=== PATIENT | female | born 2005 | race Caucasian/White ===

== ENCOUNTER 2023-05-09 22:58 | Emergency (ER) | payer OTHER, SELFPAY ==
[2023-05-09 23:02] VITALS: BP 152/85; PULSE 119; RESP 20; O2SAT 100
--- NOTE | 2023-05-09 23:09 | PC.NURSE ---
Pt dropped off by 2 male individuals in a car who did not stay. Pt arrives to triage desk and starts talking without making sense. When asked why she is here, states she is crazy. Appears to be possibly trying to use sign language. States she is having pains and asking for something to be taken out of her butt. Unable to state what is in there. Pt is able to state her , but reports she drove here herself. When asked if she has been using any drugs/alcohol, states that she has only been using the sativa and the believa . Removes shoes in triage after refusing to allow staff to take temp, stating that she was removing them for us to take VS. Also states she has Doritos feet .
[2023-05-09 23:32] LABS: Basophils Absolute Auto 0.1 K/mm3 (0.0-0.1); Basophils Percent Auto 1.2 % (0.2-1.2); Eosinophils Absolute Auto 0.3 K/mm3 (0-0.3); Eosinophils Percent Auto 3.1 % (0-4.4); Hemoglobin 12.1 g/dL (12.0-15.0); Immature Granulocyte Absolute 0.04 K/mm3 (0.00-0.031); Immature Granulocyte Percent A 0.4 % (0-0.5); Lymphocytes Absolute Auto 3.89 K/mm3 (0.9-3.2); Lymphocytes Percent Auto 37.6 % (18.3-44.2); Mean Corpuscular HGB Conc 32.7 g/dl (32-36); Mean Corpuscular Hemoglobin 27.6 pg (26-34); Mean Corpuscular Volume 84.5 fl (80-100); Mean Platelet Volume 10.1 fl (7.4-10.4); Monocytes Absolute Auto 0.8 K/mm3 (0.1-0.6); Monocytes Percent Auto 7.5 % (2.6-8.5); Neutrophils Absolute Auto 5.2 K/mm3 (1.3-6.7); Neutrophils Percent Auto 50.2 % (45.5-73.1); Platelet Count Result 433 k/mm3 (150-375); Red Blood Count 4.38 M/mm3 (4.2-5.4); Red Cell Distribution Width 13.8 % (11.5-14.5); White Blood Count 10.4 K/mm3 (4.5-10.0)
--- NOTE | 2023-05-09 23:53 | PC.NURSE ---
this rn was attempting to check patient in and assess patient needs. pt started to state, take my bra off this is uncomfortable . this rn assisted patient with bra per pt request. this rn attempted x2 to assess patient and why she was brought to the ed. pt stated, because I am crazy, one chicken flew off the nest then I will fly . this rn stated she was unsure what that meant. This RN asked pt if she had thoughts of HI or SI. Pt declined SI/ HI at this time. pt started to put on bra and started stating she wanted to look good and feel comfortable. this rn had pt put bra back on. pt unable to answer other questions this rn attempted to ask. pt continued to have loose associations.
[2023-05-09 23:58] LABS: Acetaminophen < 10 ug/mL (10-30); Ethanol < 10 mg/dL (<10); Salicylate < 1.0 mg/dL (2-20)
[2023-05-09 23:59] LABS: Alanine Aminotransferase 19 U/L (6-35); Albumin Level 4.7 g/dL (3.7-5.6); Alkaline Phosphatase 80 U/L (45-116); Anion Gap 8 mmol/L (8-16); Aspartate Amino Transferase 31 U/L (14-36); Bilirubin,Total 0.5 mg/dL (0.2-1.3); Blood Urea Nitrogen 13 mg/dL (8-21); Calcium 9.9 mg/dL (8.9-10.7); Carbon Dioxide 28 mmol/L (22-30); Chloride 105 mmol/L (98-107); Estimated CRCL calculation 108 ml/min; Estimated Glomerular Filt Rate > 60; Glucose 109 mg/dL (65-110); Potassium 3.6 mmol/L (3.4-5.0); Sodium 141 mmol/L (134-143)
--- NOTE | 2023-05-10 00:20 | PC.NURSE ---
this rn attempted to get urine from patient. this rn asked pt to provide a urine sample. pt stated she was on her period. pt placed bloody napkin in urine specimen container. this rn educated pt, that urine sample was needed. pt stated she could only go if there are fluids in her body. this rn stated she could give patient water if she could provide a urine sample. pt then stated she could provide a urine sample. this rn provided pt with a new specimen cup. pt then placed cleaning towelette inside specimen cup. this rn educated patient again on providing a urine sample.
[2023-05-10 00:57] LABS: Appearance Urine Turbid (Clear); Bacteria Urine 4+ /hpf; Bilirubin Urine 2+ (Negative); Blood Urine 3+ (Negative); Color Urine Orange (Yellow); Glucose Urine UA Negative (Negative); Ketones Urine Trace mg/dL (Negative); Leukocyte Esterase Ur 2+ LEU/UL (Negative); Mucus Urine Present /lpf; Need Manual Microscopic Reviewed; Nitrate Urine Negative (Negative); Non Pathogenic Casts 0-2; Protein Urine 2+ mg/dL (Negative); RBC Urine >100 /hpf (0-2); Squamous Epithelial Cell Urine Many /hpf (Few); WBC Urine 51-100 /hpf (0-3)
[2023-05-10 00:58] LABS: Specific Grav Ur 1.031 (1.001-1.035)
[2023-05-10 00:59] LABS: Add Urine Microscopic? YES
--- NOTE | 2023-05-10 01:29 | PC.NURSE ---
this rn explained to pt that more urine was needed due to pt not providing enough. pt stated, I know it .
--- NOTE | 2023-05-10 01:40 | PC.NURSE ---
this rn collected a urine sample at this time from patient.
[2023-05-10 01:50] LABS: Influenza A QL RT-PCR Negative (Negative); Influenza B QL RT-PCR Negative (Negative); RSV RNA, RT-PCR Negative (Negative); SARS-CoV-2 RNA PCR Negative (Negative)
[2023-05-10] MEDS: CEPHALEXIN 500 MG CAPSULE PO (01:58)
--- NOTE | 2023-05-10 02:06 | PC.NURSE ---
this rn went to assess patient. pt was laying on the ground in a puddle of her urine. pt had wiped urine on the alicea around the call light. Pt also stated she had urinated in the bed. pt removed pillow case and placed pillow case in the urine.
--- NOTE | 2023-05-10 02:20 | ED.GENADULT ---
HPI - General Adult General Chief complaint: Psychiatric Symptoms <Benedicto Lange MD - Last Filed: 05/10/23 04:29> Stated complaint: I'm crazy Not answering all questions <Benedicto Lange MD - Last Filed: 05/10/23 04:29> Time Seen by Provider: 05/09/23 23:16 <Benedicto Lange MD - Last Filed: 05/10/23 04:29> History of Present Illness HPI narrative: This is a 17-year-old female with schizophrenia presenting for medical clearance. She was sent from [place] to be medically cleared before admission. Patient is having bizarre behavior. I speak to her she makes strange nonsensical comments like I am ready to pre meditate into the brayden. She denies any SI or HI. She denies use of drugs or alcohol. <Benedicto Lange MD - Last Filed: 05/10/23 04:29> Related Data Allergies/adverse reactions: Allergies Allergy/AdvReac Type Severity Reaction Status Date / Time Unable to Assess Allergy Verified 05/09/23 23:01 <Benedicto Lange MD - Last Filed: 05/10/23 04:29> [facility], [facility] Social History Social History: Social History Substance use type: unknown <Benedicto Lange MD - Last Filed: 05/10/23 04:29> Exam Narrative: APPEARANCE: No apparent distress. Head: atraumatic. EYES: EOMI, NOSE: Atraumatic NECK: Trachea midline RESPIRATORY: No increased rate of breathing CTAB CARDIOVASCULAR: RRR, ABDOMINAL: Soft nontender no guarding rebound no CVA tenderness MUSCULOSKELETAl: No obvious deformities NEURO: Alert. Moving 4/4 extremities SKIN:: Warm, dry. Normal color PSYCHIATRIC: Normal affect <Benedicto Lange MD - Last Filed: 05/10/23 04:29> Course Course Emergency Course: (05/09/2023, Esvin PEREZ) 07:00 - This patient was signed out to me by previous ED physician, Dr. Lange pending placement for acute psychosis 13:00 - The patient was accepted as a voluntary admission with transfer to [facility]. EMS arrived to transport the patient. <Jero Mcallister MD - Last Filed: 05/10/23 19:16> Vital Signs Vital signs: Vital Signs Pulse Rate 119 H 05/09/23 23:02 Respiratory Rate 20 05/09/23 23:02 Blood Pressure 152/85 H 05/09/23 23:02 Pulse Oximetry 100 05/09/23 23:02 Oxygen Delivery Room Air 05/09/23 23:02 Temperature 98.4 F 05/10/23 13:04 Pulse Rate 99 05/10/23 13:04 Respiratory Rate 20 05/10/23 13:04 Blood Pressure 148/90 H 05/10/23 13:04 Pulse Oximetry 98 05/10/23 13:04 Oxygen Delivery Room Air 05/09/23 23:02 <Benedicto Lange MD - Last Filed: 05/10/23 04:29> Vital Signs Pulse Rate 119 H 05/09/23 23:02 Respiratory Rate 20 05/09/23 23:02 Blood Pressure 152/85 H 05/09/23 23:02 Pulse Oximetry 100 05/09/23 23:02 Oxygen Delivery Room Air 05/09/23 23:02 Temperature 98.4 F 05/10/23 13:04 Pulse Rate 99 05/10/23 13:04 Respiratory Rate 20 05/10/23 13:04 Blood Pressure 148/90 H 05/10/23 13:04 Pulse Oximetry 98 05/10/23 13:04 Oxygen Delivery Room Air 05/09/23 23:02 <Jero Mcallister MD - Last Filed: 05/10/23 19:16> Medical Decision Making MDM Narrative Medical decision making narrative: -Course: 17-year-old female presenting for medical clearance for psychiatric admission. Found have a UTI. Will be treated with Keflex. No other findings. Medically cleared for psychiatric admission. Evaluated by the crisis team and will be admitted. During the patient's stay she was urinating in her hands and wiping it on the alicea. Patient given sedation for Detection of patient's staff. -DDX includes but is not limited to: Psychosis SI HI substance use -Co-morbidities complicating care: schizophrenia -Independent interpretation of studies: UA indicative infection. Rest of workup negative. -Interventions: Keflex 500 mg, Haldol, Ativan -Shared decision making / Disposition: Psych transfer -RX Keflex 500 mg b.i.d. x5 days <Benedicto Lange MD - Last Filed: 05/10/23 04:29> V
[2023-05-10 02:28] LABS: Barbiturate Screen Urine Negative (Negative); Benzodiazepines Screen Urine Negative (Negative)
[2023-05-10 02:34] LABS: Amphetamine Screen Urine Negative (Negative); Cannabinoid Screen Urine Negative (Negative); Cocaine Screen Urine Negative (Negative); Methadone Screen Urine Negative (Negative); Opiate Screen Urine Negative (Negative); Phencyclidine Screen Urine Negative (Negative)
--- NOTE | 2023-05-10 02:38 | PC.NURSE ---
this rn left a voicemail for sheet ironworker to call, pt is medically cleared at this time.
--- NOTE | 2023-05-10 03:00 | PC.NURSE ---
pt observed to be urinating in hand and smearing on alicea. pt also noted to be urinating on bed/ floor/ pillow/ belongings.
--- NOTE | 2023-05-10 04:10 | PC.NURSE ---
[facility] arrived with information on pt. TIARA states, pt was admitted at [facility] and was discharged from their facility on 05/06 for bipolar disorder. pt sees x2 providers at [facility]. pt was discharged and sent to [place] for outpatient residental treatment to continue medications. [facility] states, [facility] is willing to take pt back as a patient. Pt is willing to sign voluntary form for [facility] at this time.
[2023-05-10] MEDS: HALOPERIDOL LACTATE 5 MG/ML VIAL IM (04:56)
[2023-05-10] MEDS: LORazepam INJ (*CRX) 2 MG/ML VIAL IM (04:56)
--- NOTE | 2023-05-10 05:03 | PC.NURSE ---
Addendum entered by Kathie Woo RN 05/10/23 05:04: fax number for [facility] is [phone] Original Note: this rn faxed chart/ voluntary form to [facility]
--- NOTE | 2023-05-10 05:26 | PC.NURSE ---
pt refusing to stay in room. pt noted to be wandering around to the bathroom and through the hallways. this rn educated patient on importance of staying in her room. pt stated, I know what I am doing . this rn notified weigh and charge worker.
--- NOTE | 2023-05-10 08:12 | PC.NURSE ---
patient awake, coloring on pillowcase. coloring book given, patient does not want to color. requesting breakfast, advised that it should be here soon. asked patient if she was SI/HI. currently denies, states, No, Im OCD so I clean alot and I clean myself. I only have frito feet .
--- NOTE | 2023-05-10 10:53 | PC.NURSE ---
chart faxed to the [facility]
[2023-05-10 13:04] VITALS: BP 148/90; PULSE 99; RESP 20; TEMP 36.9; O2SAT 98
== END 2023-05-10 13:52 ==
PROVIDERS: Emergency Medicine; Emergency Provider Preventive Medicine Aerospace Medicine; PCP Pediatrics
DX: F20.9 Schizophrenia, unspecified (principal); N39.0 Urinary tract infection, site not specified; Z11.52 Encounter for screening for COVID-19
CPT/HCPCS: 36415; 80053; 80307; 81025; 84443; 85025; 87086; 87637; 96372; 99285; A9270; J1630; J2060